=== PATIENT | female | born 1980 | race Caucasian/White ===

== ENCOUNTER → 2023-01-06 | Outpatient (CLI) | payer OTHER ==
[~2023-01-06] VITALS: Ht 172.7 cm; Wt 76.4 kg
[~2023-01-06] MED LIST: LIDOCAINE 1% INJ 10 ML VIAL INJ ONE; LIDOCAINE 1% INJ 10 ML VIAL ONE
--- NOTE | 2023-01-06 14:23 | Diagnostic Imaging Report ---
INDICATION: Left breast mass. Patient presents for ultrasound-guided core biopsy. Patient was brought to the sonographic suite and placed on the table in the supine position. Ultrasound imaging of the left breast was performed to evaluate appropriate entry site. Left breast was then prepped and draped in usual sterile fashion. Small amount of 1% lidocaine was utilized for local anesthesia. A total of 4 core biopsies were made of the solid mass at 3 o'clock location left breast utilizing a 14-gauge Achieve needle. A marker clip was applied. Hemostasis was obtained using manual compression. Patient tolerated the procedure well and was sent for postprocedure mammogram in satisfactory condition. IMPRESSION: Successful ultrasound-guided core biopsy of the solid mass 3 o'clock location left breast. Pathology results are currently pending. Dictated by: Dictated on workstation # [id number]
--- NOTE | 2023-01-06 15:36 | Diagnostic Imaging Report ---
INDICATION: Left breast mass, status post ultrasound-guided biopsy. Unilateral left 2-D CC and ML mammography was performed after patient underwent ultrasound-guided biopsy. There is a marker clip along the edge of the mass in the outer aspect of the left breast mid depth. IMPRESSION: Marker clip placement, status post ultrasound-guided core biopsy. Dictated by: Dictated on workstation # [id number]
== END ==
LOC: RAD 12:41
PROVIDERS: ATTEND Nurse Practitioner
DX: N63.25 Unspecified lump in the left breast, overlapping quadrants (principal)
CPT/HCPCS: 19083; 77065; A4648; G0279

== ENCOUNTER → 2023-02-05 | Outpatient (CLI) | payer SELFPAY | LOC: CARD 12:57 | PROVIDERS: ATTEND Internal Medicine Hematology & Oncology | DX: C50.912 Malignant neoplasm of unspecified site of left female breast (principal); Z15.01 Genetic susceptibility to malignant neoplasm of breast | CPT/HCPCS: 93306 ==

== ENCOUNTER 2023-03-24 13:26 | Emergency (ER) | payer MEDICAID ==
[~2023-03-24] VITALS: Ht 170.2 cm; Wt 66.0 kg
--- NOTE | 2023-03-24 13:52 | ED Cough/URI ---
General Chief Complaint: Cough/Cold/Flu Symptoms Stated Complaint: CHILLS/FEVER/SORE THROAT/CHEST CONGESTION/COUGH Nursing Triage Note: PT AMBULATE TO ROOM FSOF WITHOUT DIFFCULTY WITH C/O COUGH, CONGESTION, FEVER, SORE THROAT STARTING FRIDAY. PT REPORTS CURRENTLY BEING TREATED FOR BREAST CANCER. Source: patient Exam Limitations: no limitations History of Present Illness Date Seen by Provider: Mar 24, 2023 Time Seen by Provider: 13:39 Initial Comments 42-year-old female presents to the emergency department today for cough, fever congestion and body aches. Symptoms started on Friday. She took a COVID test at that time which was negative. Notably she does have breast cancer and is undergoing chemotherapy with her last treatment on Friday of last week. She does not have a history of low blood counts with this. No sick contacts. All other systems reviewed and negative except documented per HPI. Voice recognition software was used to help create this chart Allergies and Home Medications Allergies Coded Allergies: doxycycline (Verified Allergy, Severe, Vomiting, 01/06/23) Sulfa (Sulfonamide Antibiotics) (Verified Allergy, Mild, 01/06/23) Patient Home Medication List Home Medication List Reviewed: Yes Levofloxacin (Levofloxacin) 500 Mg Tablet, 500 MG PO DAILY Prescribed by: SRINIVAS QUINN MD on 03/24/23 [id number] Review of Systems Review of Systems Constitutional: see HPI Past Itplnma-Lvbgfd-Ldxxmv Hx Patient Social History Tobacco Use?: No Smoking Status: Never a Smoker Smokeless Tobacco Frequency: Never a User Use of E-Cig and/or Vaping dev: Yes Use of E-Cig and/or Vaping Loco: Current Everyday User Substance use?: No Alcohol Use?: No Pt feels they are or have been: No Physical Exam Vital Signs - First Documented 03/24/23 13:35 Temp 38.8 Pulse 114 Resp 19 B/P (MAP) 128/51 (76) O2 Delivery Room Air Capillary Refill : Less Than 3 Seconds Height: '" Weight: lbs. oz. kg; 22.00 BMI Method: General Appearance: WD/WN, no apparent distress Eyes: Bilateral Eye Normal Inspection, Bilateral Eye PERRL, Bilateral Eye EOMI HEENT: normal ENT inspection, TMs normal, pharynx normal Neck: non-tender, full range of motion, supple, normal inspection Respiratory: chest non-tender, lungs clear, normal breath sounds, no respiratory distress, no accessory muscle use Cardiovascular: regular rate, rhythm, no murmur Gastrointestinal: normal bowel sounds, non tender, soft Extremities: normal range of motion, non-tender, normal inspection Neurologic/Psychiatric: alert, oriented x 3 Skin: normal color, warm/dry Lymphatic: no adenopathy Focused Exam Lactate Level 03/24/23 13:50: Lactic Acid Level 2.89*H Lactic Acid Level Laboratory Tests Test 03/24/23 13:50 Lactic Acid Level 2.89 MMOL/L (0.50-2.00) *H Progress/Results/Core Measures Suspected Sepsis SIRS Temperature: Pulse: 114 Respiratory Rate: 19 Laboratory Tests 03/24/23 13:50: White Blood Count 8.1 Blood Pressure 128 /51 Mean: 76 03/24/23 13:50: Lactic Acid Level 2.89*H Laboratory Tests 03/24/23 13:50: Creatinine 0.56L, Platelet Count 381, Total Bilirubin 0.5 Results/Orders Lab Results Laboratory Tests Test 03/24/23 13:50 03/24/23 14:07 Range/Units White Blood Count 8.1 4.3-11.0 10^3/uL Red Blood Count 3.27 L 3.80-5.11 10^6/uL Hemoglobin 10.4 L 11.5-16.0 g/dL Hematocrit 31 L 35-52 % Mean Corpuscular Volume 95 80-99 fL Mean Corpuscular Hemoglobin 32 25-34 pg Mean Corpuscular Hemoglobin Concent 33 32-36 g/dL Red Cell Distribution Width 14.8 H 10.0-14.5 % Platelet Count 381 130-400 10^3/uL Mean Platelet Volume 9.1 9.0-12.2 fL Immature Granulocyte % (Auto) 0 % Neutrophils (%) (Auto) 71 42-75 % Lymphocytes (%) (Auto) 18 12-44 % Monocytes (%) (Auto) 9 0-12 % Eosinophils (%) (Auto) 1 0-10 % Basophils (%) (Auto) 1 0-10 % Neutrophils # (Auto) 5.7 1.8-7.8 10^3/uL Lymphocytes # (Auto) 1.5 1.0-4.0 10^3/uL Monocytes # (Auto) 0.8 0.0-1.0 10^3/uL Eosinophils # (Auto) 0.1 0.0-0.3 10^3/uL Basophils # (Auto) 0.1 0.0-0.1 10^3/uL Immature Granulocyte # (Auto) 0.0 0.0-0.1 10^3/uL Percent Immature Platelet Fraction 2.2 0.0-7.6 % Urine Color YELLOW Urine Clarity CLEAR Urine pH 6.0 5-9 Urine Specific Brooks <=1.005 1.016-1.022 Urine Protein NEGATIVE NEGATIVE Urine Glucose (UA) NEGATIVE NEGATIVE Urine Ketones NEGATIVE NEGATIVE Urine Nitrite NEGATIVE NEGATIVE Urine Bilirubin NEGATIVE NEGATIVE Urine Urobilinogen 0.2 < = 1.0 MG/DL Urine Leukocyte Esterase NEGATIVE NEGATIVE Urine RBC (Auto) 1+ H NEGATIVE Urine RBC 10-25 H /HPF Urine WBC 0-2 /HPF Urine Squamous Epithelial Cells 5-10 /HPF Urine Crystals NONE /LPF Urine Bacteria FEW H /HPF Urine Casts NONE /LPF Urine Mucus NEGATIVE /LPF Urine Culture Indicated NO Sodium Level 135 135-145 MMOL/L Potassium Level 3.8 3.6-5.0 MMOL/L Chloride Level 100 98-107 MMOL/L Carbon Dioxide Level 21 21-32 MMOL/L Anion Gap 14 5-14 MMOL/L Blood Urea Nitrogen 3 L 7-18 MG/DL Creatinine 0.56 L 0.60-1.30 MG/DL Estimat Glomerular Filtration Rate 118 BUN/Creatinine Ratio 5 Glucose Level 145 H 70-105 MG/DL Lactic Acid Level 2.89 *H 0.50-2.00 MMOL/L Calcium Level 9.6 8.5-10.1 MG/DL Corrected Calcium 9.2 8.5-10.1 MG/DL Total Bilirubin 0.5 0.1-1.0 MG/DL Aspartate Amino Transf (AST/SGOT) 42 H 5-34 U/L Alanine Aminotransferase (ALT/SGPT) 60 H 0-55 U/L Alkaline Phosphatase 103 40-136 U/L Total Protein 7.6 6.4-8.2 GM/DL Albumin 4.5 3.2-4.5 GM/DL Influenza Type A (RT-PCR) Not Detected Not Detecte Influenza Type B (RT-PCR) Not Detected Not Detecte SARS-CoV-2 RNA (RT-PCR) Not Detected Not Detecte My Orders Orders - SRINIVAS QUINN DO Cbc And Automated Diff (03/24/23 13:48) Comprehensive Metabolic Panel (03/24/23 13:48) Ua Culture If Indicated (03/24/23 13:48) Chest 1 View Ap/Pa Only (03/24/23 13:48) Lactic Acid Analyzer (03/24/23 13:48) Covid 19 Inhouse Test (03/24/23 13:48) Influenza A And B By Pcr (03/24/23 13:48) Blood Culture (03/24/23 13:48) Ed Iv/Invasive Line Start (03/24/23 13:48) Ns Iv 1000 Ml (Ns Iv 1000 Ml) (03/24/23 14:00) Vital Signs/I&O 03/24/23 03/24/23 13:35 13:35 Temp 38.8 Pulse 114 Resp 19 B/P (MAP) 128/51 (76) O2 Delivery Room Air Room Air Capillary Refill : Less Than 3 Seconds Blood Pressure Mean: 76 Departure Communication (Admissions) Patient is hemodynamically stable, mildly tachycardic in accordance with her fever. Blood pressures are normal. She does have slightly elevated lactic acid she was given IV fluids here. Electrolytes, creatinine are all normal. White blood cell count is normal, no evidence for neutropenia given her recent chemotherapy. Chest x-ray does show some mild atelectasis versus infiltrate so given her immunocompromise state we will go ahead and start her on some antibiotics. We will go ahead and give her Levaquin to start today. COVID and flu testing are negative. She be discharged home in stable condition with strict return precautions. Impression Primary Impression: Fever Qualified Codes: R50.9 - Fever, unspecified Additional Impression: Pneumonia Qualified Codes: J18.9 - Pneumonia, unspecified organism Disposition: HOME, SELF-CARE Condition: Stable Departure-Patient Inst. Referrals: NO,LOCAL PHYSICIAN (PCP/Family) Primary Care Physician Patient Instructions: Bacterial Upper Respiratory Infection, Adult (DC) Add. Discharge Instructions: Take the antibiotics as prescribed until they are gone. Alternate ibuprofen and Tylenol as needed for fevers, body aches. Increase your fluids at home. Follow-up with your primary doctor should your symptoms change in any way concerning to you. Return to the emergency department for any severe concerns. All discharge instructions reviewed with patient and/or family. Voiced understanding. Scripts Levofloxacin (Levofloxacin) 500 Mg Tablet 500 MG PO DAILY for 5 Days, #5 TAB Prov: SRINIVAS QUINN DO 03/24/23 Work/School Note: Work Release Form Date Seen in the Emergency Department: Mar 24, 2023 Return to Work: Mar 26, 2023 Restrictions: No Restrictions Copy Copies To 1: KENYA BARDALES KENNETH L DO Mar 24, 2023 13:52
[2023-03-24] MEDS ORDERED: NS IV 1000 ML 1,000 ML IV SCH (14:00)
[2023-03-24 14:19] LABS: BASOPHILS # (AUTO) 0.1 10^3/uL (0.0-0.1); BASOPHILS % (AUTO) 1 % (0-10); BILIRUBIN,URINE NEGATIVE (NEGATIVE); CLARITY,URINE CLEAR; COLOR,URINE YELLOW; EOSINOPHILS # (AUTO) 0.1 10^3/uL (0.0-0.3); EOSINOPHILS % (AUTO) 1 % (0-10); GLUCOSE, URINE (UA) NEGATIVE (NEGATIVE); HEMATOCRIT 31 % (35-52); HEMOGLOBIN 10.4 g/dL (11.5-16.0); KETONES,URINE NEGATIVE (NEGATIVE); LEUKOCYTE ESTERASE ,URINE NEGATIVE (NEGATIVE); LYMPHOCYTES # (AUTO) 1.5 10^3/uL (1.0-4.0); LYMPHOCYTES % (AUTO) 18 % (12-44); MEAN CORPUSCULAR HEMOGLOBIN 32 pg (25-34); MEAN CORPUSCULAR HGB CONC 33 g/dL (32-36); MEAN CORPUSCULAR VOLUME 95 fL (80-99); MEAN PLATELET VOLUME 9.1 fL (9.0-12.2); MONOCYTES # (AUTO) 0.8 10^3/uL (0.0-1.0); MONOCYTES % (AUTO) 9 % (0-12); NEUTROPHILS # (AUTO) 5.7 10^3/uL (1.8-7.8); NEUTROPHILS % (AUTO) 71 % (42-75); NITRITE,URINE NEGATIVE (NEGATIVE); PLATELET COUNT 381 10^3/uL (130-400); PROTEIN,URINE NEGATIVE (NEGATIVE); WHITE BLOOD COUNT 8.1 10^3/uL (4.3-11.0)
[2023-03-24 14:27] LABS: BACTERIA,URINE FEW /HPF; WBC,URINE 0-2 /HPF
--- NOTE | 2023-03-24 14:33 | Diagnostic Imaging Report ---
EXAMINATION: Chest, 1 view. HISTORY: Cough, fever, on chemotherapy. COMPARISON: None available. FINDINGS: Heart size and pulmonary vasculature are normal. There are mild interstitial opacities within the lung bases. No pleural effusion or pneumothorax. The osseous structures are intact. A right-sided port catheter is present. IMPRESSION: Mild interstitial opacities in the lung bases which could be seen with atelectasis, edema, or pneumonia. Dictated by: Dictated on workstation # [id number]
[2023-03-24 14:37] LABS: BILIRUBIN,TOTAL 0.5 MG/DL (0.1-1.0); CALCIUM 9.6 MG/DL (8.5-10.1); CREATININE SERUM 0.56 MG/DL (0.60-1.30); POTASSIUM 3.8 MMOL/L (3.6-5.0)
[2023-03-24 14:38] LABS: ALBUMIN 4.5 GM/DL (3.2-4.5); TOTAL PROTEIN 7.6 GM/DL (6.4-8.2)
[2023-03-24] MEDS ORDERED: LEVO-55 PO (14:47)
[2023-03-24] MEDS ORDERED: FLUC200T PO (14:57)
[2023-03-24 14:58] VITALS: BP 128/62
== END 2023-03-24 14:58 | disposition home or self-care (01) ==
LOC: EDUNIT# 13:26 → ER FS 13:28
DX: J18.9 Pneumonia, unspecified organism (principal); F17.290 Nicotine dependence, other tobacco product, uncomplicated; Z88.1 Allergy status to other antibiotic agents; Z88.2 Allergy status to sulfonamides
CPT/HCPCS: 36415; 71045; 80053; 81000; 83605; 85025; 87040; 87636

== ENCOUNTER 2023-04-04 12:22 | Emergency (ER) | payer MEDICAID ==
[~2023-04-04] VITALS: Ht 170.2 cm; Wt 64.4 kg
[~2023-04-04 12:22] MED LIST changes: +FLUC200T PO; +LEVO-55 PO; -LIDOCAINE 1% INJ 10 ML VIAL INJ ONE; -LIDOCAINE 1% INJ 10 ML VIAL ONE
[2023-04-04] MEDS ORDERED: LACTATED RINGERS 1,000 ML 1,000 ML IV ONE ×3 (13:30→18:45)
[2023-04-04] MEDS ORDERED: fentaNYL INJECTION 100 MCG/2 ML VIAL IVP ONE ×2 (13:30→19:00)
--- NOTE | 2023-04-04 13:39 | ED General ---
General Chief Complaint: General Problems/Pain Stated Complaint: GENERAL PAIN Nursing Triage Note: PT AMBULATE TO ROOM 10 WITHOUT DIFFICULTY WITH C/O GENERALIZED BODY PAIN. PT REPORTS HX OF CANCER AND HAS NOT BEEN ABLE TO MAKE IT TO HER LAST X2 TREATMENTS. PT REPORTS NEW ABD PAIN. Source of Information: Patient Exam Limitations: No Limitations (BARB VELEZ MD) History of Present Illness Date Seen by Provider: Apr 04, 2023 Time Seen by Provider: 13:15 Initial Comments This 42 year old young lady presents to the ER via private vehicle with ab dominal discomfort, cough, diarrhea, nausea, fatigue, headache and fevers up to 101 over the past few days. She is presently receiving chemotherapy treatment for breast cancer. Her last round of chemotherapy was [address] Reddy is her oncologist. She does not have a primary care provider. She is tachycardic at this time but afebrile. She reports recently being treated for suspected pneumonia with a Z-Linus that was started 3 days ago. She was directed to the ER by Dr. Reddy's clinic. She was also seen in the [place] emergency room on March 24. She was diagnosed with bacterial upper respiratory infection and was prescribed Levaquin at that time. She notes her urine has been dark and she feels dry. (BARB VELEZ MD) Allergies and Home Medications Allergies Coded Allergies: doxycycline (Verified Allergy, Severe, Vomiting, 01/06/23) Sulfa (Sulfonamide Antibiotics) (Verified Allergy, Mild, 01/06/23) Patient Home Medication List Home Medication List Reviewed: Yes (BARB VELEZ MD) Fluconazole (Diflucan) 200 Mg Tablet, 200 MG PO ONCE Prescribed by: SRINIVAS QUINN MD on 03/24/23 1457 Hyoscyamine Sulfate (Levsin-Sl) 0.125 Mg Tab.subl, 0.125 MG SL Q4H PRN for CRAMPS Prescribed by: BARB PHELAN on 04/04/23 1609 L. Acidophilus/Pectin, Grundy (Acidophilus Capsule) 7.5 Mg (30 Million Cell)-100 Mg Capsule, 2 EACH PO QID Prescribed by: LLOYD JARVIS on 04/04/23 1950 Levofloxacin (Levofloxacin) 500 Mg Tablet, 500 MG PO DAILY Prescribed by: SRINIVAS QUINN MD on 03/24/23 1447 Ondansetron (Ondansetron Odt) 4 Mg Tab.rapdis, 4 MG SL Q4H PRN for NAUSEA/VOMITING Prescribed by: BARB PHELAN on 04/04/23 1609 Pantoprazole Sodium (Protonix) 40 Mg Tablet.dr, 40 MG PO DAILY Prescribed by: LLOYD JARVIS on 04/04/231915 Sucralfate (Carafate) 1 Gram Tablet, 1 GM PO QID Prescribed by: LLOYD JARVIS on 04/04/231915 Review of Systems Review of Systems Constitutional: see HPI EENTM: no symptoms reported Respiratory: see HPI Cardiovascular: see HPI Gastrointestinal: see HPI Genitourinary: no symptoms reported : No Musculoskeletal: no symptoms reported Skin: no symptoms reported Psychiatric/Neurological: See HPI Hematologic/Lymphatic: See HPI Immunological/Allergic: see HPI (BARB VELEZ MD) Past Duemyap-Unukaf-Rtpbdl Hx Patient Social History Tobacco Use?: No Smoking Status: Never a Smoker Smokeless Tobacco Frequency: Never a User Use of E-Cig and/or Vaping dev: Yes E-Cig or Vaping type used: Nicotine Use of E-Cig and/or Vaping Loco: Current Everyday User Substance use?: No Alcohol Use?: No Pt feels they are or have been: No (BARB VELEZ MD) Past Medical History Surgeries: Yes (Port) Section Respiratory: No Cardiac: No Neurological: No : No Reproductive Disorders: No Genitourinary: No Gastrointestinal: No Musculoskeletal: No Endocrine: No Cancer: Yes Breast Did You Recieve Any Treatments: Yes What Type of Treatment Did You: Chemotherapy (BARB VELEZ MD) Physical Exam Vital Signs Vital Signs - First Documented 04/04/23 12:42 Temp 36.5 Pulse 127 Resp 16 B/P (MAP) 126/83 (97) O2 Delivery Room Air (LLOYD JARVIS DO) Vital Signs Capillary Refill : (BARB VELEZ MD) Height, Weight, BMI Height: '" Weight: lbs. oz. kg; 22.00 BMI Method: General Appearance: No Apparent Distress, WD/WN HEENT: PERRL/EOMI, Normal ENT Inspection, Other (Oropharynx somewhat dry) Neck: Normal Inspection; No JVD Respiratory: Lungs Clear, Normal Breath Sounds, No Accessory Muscle Use Cardiovascular: No Edema, No Murmur, Tachycardia (Regular) Gastrointestinal: Normal Bowel Sounds, Soft; No Distended; Tenderness (Mild, generalized) Extremity: Normal Inspection, No Pedal Edema Neurologic/Psychiatric: Alert, Oriented x3, No Motor/Sensory Deficits, Normal Mood/Affect Skin: Normal Color, Warm/Dry (BARB VELEZ MD) Focused Exam Lactate Level 04/04/23 18:56: Lactic Acid Level 0.95 (LLOYD JARVIS DO) Lactic Acid Level Laboratory Tests Test 04/04/23 18:56 Lactic Acid Level 0.95 MMOL/L (0.50-2.00) (LLOYD JARVIS DO) Progress/Results/Core Measures Suspected Sepsis SIRS Temperature: Pulse: 127 Respiratory Rate: 16 Laboratory Tests 04/04/23 13:43: White Blood Count 6.3 Blood Pressure 126 /83 Mean: 97 04/04/23 18:56: Lactic Acid Level 0.95 Laboratory Tests 04/04/23 13:43: Creatinine 0.58L, Platelet Count 328, Total Bilirubin 0.9 04/04/23 13:48: INR Comment 1.1 (BARB VELEZ MD) Results/Orders Lab Results Laboratory Tests Test 04/04/23 13:19 04/04/23 13:43 04/04/23 13:48 04/04/23 18:56 Range/Units Urine Color YELLOW Urine Clarity CLEAR Urine pH 5.5 5-9 Urine Specific [place] >=1.030 1.016-1.022 Urine Protein TRACE H NEGATIVE Urine Glucose (UA) NEGATIVE NEGATIVE Urine Ketones 4+ H NEGATIVE Urine Nitrite NEGATIVE NEGATIVE Urine Bilirubin 1+ H NEGATIVE Urine Urobilinogen 0.2 < = 1.0 MG/DL Urine Leukocyte Esterase NEGATIVE NEGATIVE Urine RBC (Auto) 1+ H NEGATIVE Urine RBC RARE /HPF Urine WBC RARE /HPF Urine Squamous Epithelial Cells 5-10 /HPF Urine Crystals PRESENT H /LPF Urine Amorphous Sediment RARE GIULIA URATES H /LPF Urine Bacteria NEGATIVE /HPF Urine Casts NONE /LPF Urine Mucus NEGATIVE /LPF Urine Culture Indicated NO White Blood Count 6.3 4.3-11.0 10^3/uL Red Blood Count 3.19 L 3.80-5.11 10^6/uL Hemoglobin 9.9 L 11.5-16.0 g/dL Hematocrit 30 L 35-52 % Mean Corpuscular Volume 95 80-99 fL Mean Corpuscular Hemoglobin 31 25-34 pg Mean Corpuscular Hemoglobin Concent 33 32-36 g/dL Red Cell Distribution Width 13.7 10.0-14.5 % Platelet Count 328 130-400 10^3/uL Mean Platelet Volume 9.1 9.0-12.2 fL Immature Granulocyte % (Auto) 1 % Neutrophils (%) (Auto) 65 42-75 % Lymphocytes (%) (Auto) 20 12-44 % Monocytes (%) (Auto) 14 H 0-12 % Eosinophils (%) (Auto) 1 0-10 % Basophils (%) (Auto) 1 0-10 % Neutrophils # (Auto) 4.1 1.8-7.8 10^3/uL Lymphocytes # (Auto) 1.2 1.0-4.0 10^3/uL Monocytes # (Auto) 0.9 0.0-1.0 10^3/uL Eosinophils # (Auto) 0.0 0.0-0.3 10^3/uL Basophils # (Auto) 0.0 0.0-0.1 10^3/uL Immature Granulocyte # (Auto) 0.0 0.0-0.1 10^3/uL Sodium Level 138 135-145 MMOL/L Potassium Level 3.5 L 3.6-5.0 MMOL/L Chloride Level 106 98-107 MMOL/L Carbon Dioxide Level 23 21-32 MMOL/L Anion Gap 9 5-14 MMOL/L Blood Urea Nitrogen 10 7-18 MG/DL Creatinine 0.58 L 0.60-1.30 MG/DL Estimat Glomerular Filtration Rate 117 BUN/Creatinine Ratio 17 Glucose Level 85 70-105 MG/DL Calcium Level 9.8 8.5-10.1 MG/DL Corrected Calcium 10.0 8.5-10.1 MG/DL Magnesium Level 1.8 1.6-2.4 MG/DL Total Bilirubin 0.9 0.1-1.0 MG/DL Aspartate Amino Transf (AST/SGOT) 50 H 5-34 U/L Alanine Aminotransferase (ALT/SGPT) 70 H 0-55 U/L Alkaline Phosphatase 96 40-136 U/L C-Reactive Protein High Sensitivity 0.24 0.00-0.50 MG/DL B-Type Natriuretic Peptide 47.6 <100.0 PG/ML Total Protein 6.7 6.4-8.2 GM/DL Albumin 3.8 3.2-4.5 GM/DL Lipase 23 8-78 U/L Serum Test, Qualitative NEGATIVE NEGATIVE Influenza Type A (RT-PCR) Not Detected Not Detecte Influenza Type B (RT-PCR) Not Detected Not Detecte SARS-CoV-2 RNA (RT-PCR) Not Detected Not Detecte Prothrombin Time 14.9 H 12.2-14.7 SEC INR Comment 1.1 0.8-1.4 Activated Partial Thromboplast Time 33 24-35 SEC D-Dimer 1.16 H 0.00-0.49 UG/ML Troponin I < 0.028 <0.028 NG/ML TSH Agency Testing 0.00 L 0.35-4.94 UIU/ML Lactic Acid Level 0.95 0.50-2.00 MMOL/L (LLOYD JARVIS DO) My Orders Orders - LLOYD JARVIS DO Ct Angio Chest W (R/O Pe) (04/04/23 18:28) Iohexol Injection (Omnipaque 350 Mg/Ml 1 (04/04/23 18:30) Ns (Ivpb) 100 Ml (Sodium Chloride 0.9% 1 (04/04/23 18:30) Ed Iv/Invasive Line Start (04/04/23 18:33) Lactated Ringers 1,000 Ml (Lactated Ring (04/04/23 18:45) Fentanyl Injection (Fentanyl Injection (04/04/23 19:00) Thyroid Analyzer (04/04/23 18:59) Bnp Suzanne (04/04/23 19:20) Free T4 (Free Thyroxine) (04/04/23 13:48) Rx-Hyoscyamine Tab (Rx-Levsin Sl) (04/04/23 19:59) Rx-Ondansetron Po (Rx-Zofran Po) (04/04/23 19:59) (LLOYD JARVIS DO) Medications Given in ED Current Medications Medications Dose Ordered Sig/Annie Route Start Time Stop Time Status Last Admin Dose Admin Fentanyl Citrate 50 mcg ONCE ONCE IVP 04/04/23 13:30 04/04/23 13:31 DC 04/04/23 13:35 50 MCG Fentanyl Citrate 50 mcg ONCE ONCE IVP 04/04/23 19:00 04/04/23 19:01 DC 04/04/23 19:19 50 MCG Iohexol 100 ml ONCE ONCE IV 04/04/23 17:15 04/04/23 17:16 DC 04/04/23 17:26 80 ML Iohexol 100 ml ONCE ONCE IV 04/04/23 18:30 04/04/23 18:31 DC 04/04/23 18:52 70 ML Lactated Ringer's 1,000 ml @ 0 mls/hr Q0M ONCE IV 04/04/23 13:30 04/04/23 13:31 DC 04/04/23 13:35 999 MLS/HR Lactated Ringer's 1,000 ml @ 0 mls/hr Q0M ONCE IV 04/04/23 14:30 04/04/23 14:31 DC 04/04/23 14:35 999 MLS/HR Lactated Ringer's 1,000 ml @ 0 mls/hr Q0M ONCE IV 04/04/23 18:45 04/04/23 18:46 DC 04/04/23 18:50 999 MLS/HR Sodium Chloride 100 ml ONCE ONCE IV 04/04/23 17:15 04/04/23 17:16 DC 04/04/23 17:27 80 ML Sodium Chloride 100 ml ONCE ONCE IV 04/04/23 18:30 04/04/23 18:31 DC 04/04/23 18:52 70 ML (LLOYD JARVIS DO) Vital Signs/I&O 04/04/23 12:42 Temp 36.5 Pulse 127 Resp 16 B/P (MAP) 126/83 (97) O2 Delivery Room Air (SIMONAGONZALESA K DO) Vital Signs/I&O Capillary Refill : (BARB VELEZ MD) Blood Pressure Mean: 97 Progress Note #1: Time: 17:00 Progress Note Lakia was interviewed and examined. She had generalized abdominal pain which is new for her. She was treated with fentanyl for pain control. She did not require any antiemetics. She was hydrated with a liter of LR which was repeated after review of her urinalysis which revealed 4+ ketones and high specific gravity suggesting hypovolemia. Labs were obtained and interpreted by me. Hemoglobin did was 10.4 on March 24 and is 9.9 today. CBC is otherwise unremarkable. CMP demonstrated no clinically significant abnormalities. Urinalysis was notable for high specific gravity and 4+ ketones. 2 view chest x-ray was reviewed by me and interpreted as unremarkable. Report was also reviewed as noted below. There is no evidence of active pneumonia. Patient was reexamined and found to have tenderness primarily on the right side of the abdomen, right upper quadrant greater than right lower quadrant. She was further evaluated with a gallbladder ultrasound which was unremarkable. We discussed risks and benefits of a CT scan to further evaluate her pain, fevers, and tachycardia. She declined CT scan. She also declined further pain management with Toradol. Patient was actually prepared for discharge but nursing staff noted that her heart rate was still in the 120-130 range and her blood pressure was 104/42 with a MAP of 67. Temperature was checked again and she is not febrile. She denies consuming any substances that would have accelerated her blood pressure such as decongestant medications or other stimulants. She denies withdrawing from any substances such as benzodiazepines or opioid pain medications. She appears to be adequately hydrated based on her labs. She is also urinated multiple times since initiating IV fluids. Since there is no explanation for this tachycardia, I have recommended that she proceed with the CT of the abdomen for further evaluation. She is agreeable. This will help ensure that there is no occult infection in the abdomen or hemorrhage. Patient asserts that she has had fever for the past 2 days even though she is afebrile here and that she just simply does not feel well in general. Progress Note #2: Time: 18:17 Progress Note Lakia has remained tachycardic with heart rate in the 120-[address] of the abdomen and pelvis was viewed by me. No acute abnormalities were appreciated by my interpretation. Radiologist's report was also reviewed as below. There was fluid in the bowel consistent with diarrheal disease which also matches with her clinical presentation. No explanation has yet surfaced for her symptoms and tachycardia. Viral illness is still within the differential. I have interviewed her again regarding her symptoms. She denies any chest pain, shortness of breath, or pleuritic pain. Her oxygen saturations have been in the mid 90s to 100 on room air. She has demonstrated no dyspnea. However, in the context of no other explanation, I am compelled to include pulmonary embolus in the differential. I have discussed options for further evaluation with the patient. In regard to additional studies, she states "I want to do what ever it takes to feel better." Additional studies including D-dimer, EKG, and troponin have been ordered. Care is being transitioned to Dr. JARVIS at this time. Although no source of infection has been identified, blood culture will also be obtained due to the fever she has had in recent days. (BARB VELEZ MD) Progress Note : Progress Note 1800--ASSUMED CARE OF PT AT SHIFT CHANGE, ADDITIONAL TESTS HAVE JUST BEEN ORDERED BY DR. VELEZ AT END OF SHIFT ( PT HAS ALREADY BEEN HERE > 6 HOURS) , WILL ALSO ADD CT CHEST ANGIOGRAM 1854--PT C/O HEADACHE--FENTANYL ORDERED. ADDITIONAL FLUIDS ORDERED CT SCANS OF CHEST, ABDOMEN, PELVIS UNREMARKABLE EXCEPT FOR LIQUID STOOL NOTED ON CT SCAN. ULTRASOUND OF ABDOMEN NORMAL CXR DOES NOT SHOW ANY ACUTE PROCESS LABS UNREMARKABLE, HGB 9.9, CMP UNREMARKABLE, AMYLASE / LIPASE NORMAL, LFT'S UPPER LIMITS OF NORMAL. LACTIC ACID IS NORMAL TROPONIN IS NEGATIVE BNP NORMAL TSH 0.0 CRP NORMAL EKG SHOWS SINUS TACH, NO ST SEGMENT ABNORMALITIES UA DOES NOT SHOW INFECTION COVID / FLU TESTS NEGATIVE UA WITH 4+ KETONES NO STOOLS DURING MY CARE OF PT, PT STATES SHE HAS BEEN HAVING DIARRHEA. DISCUSSED POSSIBILITY OF C. DIFF. SHE HAS BEEN ON ANTIBIOTICS RECENTLY, AND NEED FOR STOOL SPECIMEN TO DETERMINE THAT. HEADACHE GONE, ABDOMINAL PAIN IMPROVED. NO NAUSEA, NO VOMITING, NO BM DURING ER STAY PT HAS VOIDED MULTIPLE TIMES DURING ER STAY NO COUGH, NO DYSPNEA, NO HYPOXIA, NO CHEST PAIN VITALS STABLE, HR DOWN, BP > 100 SYSTOLIC, NO FEVER AT DISMISSAL DISCUSSED ALL TEST RESULTS, ANTICIPATED COURSE, SYMPTOMATIC TREATMENT, DIET, ME DICATIONS, NEED FOR FOLLOW UP WITH DR. REDDY, NEED TO ESTABLISH WITH PCP ( PT IS CONSIDERING [facility] [place] ) AND RETURN PRECAUTIONS. DISCUSSED ABNORMAL THYROID FUNCTION AND STRESSED IMPORTANCE OF FOLLOW UP FOR FURTHER EVALUATION AND TREATMENT OF THAT PROBLEM WELL COMPLICATIONS, INCLUDING CARDIAC ARRHYTHMIAS. PT STATES AT DISMISSAL, HER MOTHER HAD BREAST CANCER, HYPERTHYROIDISM AND ATRIAL FIBRILLATION PT STATES SHE WAS FAIRLY RECENTLY DX WITH BREAST CANCER, AND IS ONLY ON CHEMOTHERAPY, HAS NOT HAD SURGERY OR RADIATION YET. HER ONLY PRIOR VISIT WAS AT [facility] 03/24/23. (LLOYD JARVIS DO) ECG Initial ECG Impression Date: Apr 04, 2023 Initial ECG Impression Time: 18:31 Initial ECG Rate: 123 Initial ECG Rhythm: S.Tach Initial ECG Intervals: Normal Initial ECG Comparisson: No Previous ECG Available Comment INTERPRETED BY ME (LLOYD JARVIS DO) Diagnostic Imaging Diagonstic Imaging: Xray Plain Films/CT/US/NM/MRI: chest Comments NAME: LAKIA LERNER [facility] REC#: [id number] PT STATUS: REG ER : 1980 PHYSICIAN: BARB VELEZ MD ADMIT DATE: 04/04/23/ER Draft Date of Exam:04/04/23 CHEST PA/LAT (2 VIEW) INDICATION: Pain, respiratory distress COMPARISON: 03/24/2023 FINDINGS: The lungs are clear. No failure, effusion or pneumothorax. Central line at the SVC. IMPRESSION: Unremarkable 2 view chest. Dictated on workstation # [id number] Dict: 04/04/23 1448 Trans: 04/04/23 1454 [facility] [id number] Interpreted by: ELLIE ARREOLA Diagonstic Imaging: Ultrasound Plain Films/CT/US/NM/MRI: abdomen Comments NAME: LAKIA LERNER [facility] REC#: [id number] PT STATUS: REG ER : 1980 PHYSICIAN: BARB VELEZ MD ADMIT DATE: 04/04/23/ER Draft Date of Exam:04/04/23 US GALLBLADDER [id number] PROCEDURE: US Gallbladder. TECHNIQUE: Multiple real-time grayscale images were obtained over the right upper quadrant in various projections. INDICATION: Right upper quadrant pain. FINDINGS: The liver parenchyma appeared normal. The gallbladder is normal. No stone or sludge. Portal vein is patent and normal in directional flow. No intra or extrahepatic bile duct dilatation. The unobstructed right kidney is normal. The aorta, IVC, and pancreas appeared normal. IMPRESSION: Normal right upper quadrant ultrasound. Dictated on workstation # [id number] Dict: 04/04/23 1542 Trans: 04/04/23 1545 [facility] [id number] Interpreted by: ELLIE ARREOLA Diagonstic Imaging: CT Plain Films/CT/US/NM/MRI: abdomen, pelvis Comments NAME: LAKIA LERNER [facility] REC#: [id number] PT STATUS: REG ER : 1980 PHYSICIAN: BARB VELEZ MD ADMIT DATE: 04/04/23/ER Draft Date of Exam:04/04/23 CT ABDOMEN/PELVIS W PROCEDURE: CT abdomen and pelvis with contrast. TECHNIQUE: Multiple contiguous axial images were obtained through the abdomen and pelvis after administration of intravenous contrast. Auto Exposure Controls were utilized during the CT exam to meet ALARA standards for radiation dose reduction. All CT scans use one or more of the following dose optimizing techniques: Automated exposure control, MA and/or KvP adjustment based on patient size and exam type or iterative reconstruction. INDICATION: Right-sided abdominal pain. COMPARISON: None. FINDINGS: There is mild dependent atelectasis in the left lung base. The heart is normal in size. The liver demonstrates no focal lesions. The spleen appears normal. The pancreas is normal. The adrenal glands appear normal. The kidneys demonstrate no enhancing lesions and no hydronephrosis. Mild hyperdensity in the left renal collecting system may represent early contrast excretion. The small bowel loops are nondistended without obstruction. There is fluid in the colon, consistent with diarrheal disease. No significant wall thickening or pericolonic edema is seen. The appendix appears normal. The aorta is normal in caliber. No lymphadenopathy is seen. No free fluid or free air is seen. No acute osseous abnormality is seen. IMPRESSION: 1. Fluid in the colon consistent with diarrheal disease. Dictated on workstation # [id number] Dict: 04/04/23 1732 Trans: 04/04/23 1737 [id number] Interpreted by: ROBERT JACKSON MD (BARB VELEZ MD) Comments CT CHEST ANGIOGRAM--PER RADIOLOGIST REPORT AT 1914 FINDINGS: The pulmonary arteries are diagnostic to the segmental level. No filling defects are seen to indicate a pulmonary embolus. The heart is normal in size. There is no pericardial effusion. There are a few prominent mediastinal lymph nodes. This includes a lymph node in the aortopulmonary window measuring 10 mm in short axis. There is a mildly prominent left hilar lymph node measuring 10 mm in the short axis (image 57 series 2). There is a prominent right hilar lymph node which measures 16 mm in the short axis (image 59 series 2). There is no pleural effusion and no pneumothorax. No consolidation is seen in the lungs. Imaged portions of the upper abdomen demonstrate no acute abnormality. No acute osseous abnormality is seen. There is a 1.3 cm nodule in the right thyroid. IMPRESSION: 1. No pulmonary embolus. No acute pulmonary abnormality is seen. 2. Mildly prominent mediastinal and hilar lymph nodes, particularly at the right hilum. This is nonspecific, could be reactive to an infectious or inflammatory etiology. Malignancy is felt less likely but not excluded. 3. Right thyroid nodule, recommend nonemergent ultrasound to further evaluate. Reviewed: Reviewed by Me (LLOYD JARVIS DO) Departure Impression Primary Impression: Right sided abdominal pain Additional Impressions: Nausea Diarrhea Qualified Codes: R19.7 - Diarrhea, unspecified Tachycardia Gastroenteritis Abnormal TSH BREAST CANCER CURRENTLY RECEIVING CHEMOTHERAPY Disposition: 01 HOME, SELF-CARE Condition: Improved Departure-Patient Inst. Decision time for Depature: 16:05 (BARB VELEZ MD) Referrals: NO,LOCAL PHYSICIAN (PCP/Family) Primary Care Physician Patient Instructions: Abdominal Pain, Adult ED, Dehydration, Adult ED, Diarrhea, Adult ED, [id number], Thyroid Stimulating Hormone Test Add. Discharge Instructions: No source of bacterial infection was identified on your work-up today. Complete the azithromycin antibiotic previously prescribed. Start with a noncarbonated clear liquid diet and gradually advance your diet with small quantities of bland food as tolerated. Avoid dairy, fatty foods, and greasy foods until at least 48 hours after your diarrhea has stopped. CLEAR LIQUIDS--WATER, BROTH, JELLO, GATORADE BRATS DIET--BANANAS, RICE, APPLESAUCE, TOAST, SALTINES Use Zofran (ondansetron) as prescribed for nausea or vomiting. Use Levsin (hyoscyamine) as prescribed for bowel cramping or diarrhea. You may use Tylenol (acetaminophen) up to 1000 mg every 6 hours as needed for pain. You may add ibuprofen sparingly up to 600 mg every 6 hours as needed for additional pain relief. Return to the ER if you have worsening symptoms despite following these instructions Follow-up with the oncology clinic by phone tomorrow for further direction. All discharge instructions reviewed with patient and/or family. Voiced understanding. Scripts L. Acidophilus/Pectin, Grundy (Acidophilus Capsule) 7.5 Mg (30 Million Cell)-100 Mg Capsule 2 EACH PO QID, #40 CAP Prov: LLOYD JARVIS DO 04/04/23 Sucralfate (Carafate) 1 Gram Tablet 1 GM PO QID, #60 TAB Prov: LLOYD JARVIS DO 04/04/23 Pantoprazole Sodium (Protonix) 40 Mg Tablet.dr 40 MG PO DAILY, #15 TAB Prov: LLOYD JARVIS DO 04/04/23 Hyoscyamine Sulfate (Levsin-Sl) 0.125 Mg Tab.subl 0.125 MG SL Q4H PRN for CRAMPS, #10 TAB 0 Refills For diarrhea or bowel cramping Prov: BARB VELEZ MD 04/04/23 Ondansetron (Ondansetron Odt) 4 Mg Tab.rapdis 4 MG SL Q4H PRN for NAUSEA/VOMITING, #10 TAB Prov: BARB VELEZ MD 04/04/23 Copy Copies To 1: KENYA REDDY JOSHUA T MD Apr 04, 2023 13:39 LLOYD JARVIS DO Apr 04, 2023 18:58
[2023-04-04 13:53] LABS: BASOPHILS % (AUTO) 1 % (0-10); EOSINOPHILS % (AUTO) 1 % (0-10); HEMATOCRIT 30 % (35-52); HEMOGLOBIN 9.9 g/dL (11.5-16.0); LYMPHOCYTES # (AUTO) 1.2 10^3/uL (1.0-4.0); LYMPHOCYTES % (AUTO) 20 % (12-44); MEAN CORPUSCULAR HEMOGLOBIN 31 pg (25-34); MEAN CORPUSCULAR HGB CONC 33 g/dL (32-36); MEAN CORPUSCULAR VOLUME 95 fL (80-99); MEAN PLATELET VOLUME 9.1 fL (9.0-12.2); MONOCYTES # (AUTO) 0.9 10^3/uL (0.0-1.0); MONOCYTES % (AUTO) 14 % (0-12); NEUTROPHILS # (AUTO) 4.1 10^3/uL (1.8-7.8); NEUTROPHILS % (AUTO) 65 % (42-75); PLATELET COUNT 328 10^3/uL (130-400); WHITE BLOOD COUNT 6.3 10^3/uL (4.3-11.0)
[2023-04-04 14:01] LABS: CLARITY,URINE CLEAR; COLOR,URINE YELLOW; GLUCOSE, URINE (UA) NEGATIVE (NEGATIVE); KETONES,URINE 4+ (NEGATIVE); NITRITE,URINE NEGATIVE (NEGATIVE); PH,URINE 5.5 (5-9); PROTEIN,URINE TRACE (NEGATIVE)
[2023-04-04 14:02] LABS: AMORPHOUS SEDIMENT,UR RARE AMOR URATES /LPF; BACTERIA,URINE NEGATIVE /HPF; BILIRUBIN,URINE 1+ (NEGATIVE); LEUKOCYTE ESTERASE ,URINE NEGATIVE (NEGATIVE); RBC,URINE RARE /HPF; WBC,URINE RARE /HPF
[2023-04-04 14:17] LABS: ALBUMIN 3.8 GM/DL (3.2-4.5); BILIRUBIN,TOTAL 0.9 MG/DL (0.1-1.0); CALCIUM 9.8 MG/DL (8.5-10.1); CREATININE SERUM 0.58 MG/DL (0.60-1.30); MAGNESIUM 1.8 MG/DL (1.6-2.4); POTASSIUM 3.5 MMOL/L (3.6-5.0); TOTAL PROTEIN 6.7 GM/DL (6.4-8.2)
--- NOTE | 2023-04-04 14:54 | Diagnostic Imaging Report ---
INDICATION: Pain, respiratory distress COMPARISON: 03/24/2023 FINDINGS: The lungs are clear. No failure, effusion or pneumothorax. Central line at the SVC. IMPRESSION: Unremarkable 2 view chest. Dictated by: Dictated on workstation # [id number]
--- NOTE | 2023-04-04 15:45 | Diagnostic Imaging Report ---
PROCEDURE: US Gallbladder. TECHNIQUE: Multiple real-time grayscale images were obtained over the right upper quadrant in various projections. INDICATION: Right upper quadrant pain. FINDINGS: The liver parenchyma appeared normal. The gallbladder is normal. No stone or sludge. Portal vein is patent and normal in directional flow. No intra or extrahepatic bile duct dilatation. The unobstructed right kidney is normal. The aorta, IVC, and pancreas appeared normal. IMPRESSION: Normal right upper quadrant ultrasound. Dictated by: Dictated on workstation # [id number]
[2023-04-04] MEDS ORDERED: HYOS0.1283 SL (16:09)
[2023-04-04] MEDS ORDERED: ONDA4TAB11 SL (16:09)
[2023-04-04] MEDS ORDERED: IOHEXOL 350 MG/ML 100 ML (OMNIPAQUE 350) VIAL IV ONE ×2 (17:15→18:30)
[2023-04-04] MEDS ORDERED: NS 100 ML (IVPB) BAG IV ONE ×2 (17:15→18:30)
--- NOTE | 2023-04-04 17:37 | Diagnostic Imaging Report ---
PROCEDURE: CT abdomen and pelvis with contrast. TECHNIQUE: Multiple contiguous axial images were obtained through the abdomen and pelvis after administration of intravenous contrast. Auto Exposure Controls were utilized during the CT exam to meet ALARA standards for radiation dose reduction. All CT scans use one or more of the following dose optimizing techniques: Automated exposure control, MA and/or KvP adjustment based on patient size and exam type or iterative reconstruction. INDICATION: Right-sided abdominal pain. COMPARISON: None. FINDINGS: There is mild dependent atelectasis in the left lung base. The heart is normal in size. The liver demonstrates no focal lesions. The spleen appears normal. The pancreas is normal. The adrenal glands appear normal. The kidneys demonstrate no enhancing lesions and no hydronephrosis. Mild hyperdensity in the left renal collecting system may represent early contrast excretion. The small bowel loops are nondistended without obstruction. There is fluid in the colon, consistent with diarrheal disease. No significant wall thickening or pericolonic edema is seen. The appendix appears normal. The aorta is normal in caliber. No lymphadenopathy is seen. No free fluid or free air is seen. No acute osseous abnormality is seen. IMPRESSION: 1. Fluid in the colon consistent with diarrheal disease. Dictated by: Dictated on workstation # [id number]
--- NOTE | 2023-04-04 19:10 | Diagnostic Imaging Report ---
HISTORY: Chest pain, tachycardia. COMPARISON: None. TECHNIQUE: Axial CT angiogram of the chest was performed following intravenous administration of contrast timed for pulmonary artery evaluation. Sagittal, coronal and MIP reformats were obtained All CT scans use one or more of the following dose optimizing techniques: automated exposure control, MA and/or KvP adjustment based on patient size and exam type or iterative reconstruction. FINDINGS: The pulmonary arteries are diagnostic to the segmental level. No filling defects are seen to indicate a pulmonary embolus. The heart is normal in size. There is no pericardial effusion. There are a few prominent mediastinal lymph nodes. This includes a lymph node in the aortopulmonary window measuring 10 mm in short axis. There is a mildly prominent left hilar lymph node measuring 10 mm in the short axis (image 57 series 2). There is a prominent right hilar lymph node which measures 16 mm in the short axis (image 59 series 2). There is no pleural effusion and no pneumothorax. No consolidation is seen in the lungs. Imaged portions of the upper abdomen demonstrate no acute abnormality. No acute osseous abnormality is seen. There is a 1.3 cm nodule in the right thyroid. IMPRESSION: 1. No pulmonary embolus. No acute pulmonary abnormality is seen. 2. Mildly prominent mediastinal and hilar lymph nodes, particularly at the right hilum. This is nonspecific, could be reactive to an infectious or inflammatory etiology. Malignancy is felt less likely but not excluded. 3. Right thyroid nodule, recommend nonemergent ultrasound to further evaluate. Dictated by: Dictated on workstation # [id number]
[2023-04-04 19:11] LABS: INR 1.1 (0.8-1.4); PROTHROMBIN TIME PATIENT 14.9 SEC (12.2-14.7)
[2023-04-04] MEDS ORDERED: SUCR1TAB36 PO (19:16)
[2023-04-04] MEDS ORDERED: PANT40TA2 PO (19:16)
[2023-04-04] MEDS ORDERED: L. A1CAP11 PO (19:50)
[2023-04-04 19:55] LABS: FIBRIN DEGRADATION PRODUCTS 1.16 UG/ML (0.00-0.49)
[2023-04-04] MEDS ORDERED: RX-ONDANSETRON 4 MG ODT (ZOFRAN) PPK #4 PO STA (19:59)
[2023-04-04] MEDS ORDERED: RX-HYOSCYAMINE 0.125 MG SL (LEVSIN) PPK#6 SL STA (19:59)
[2023-04-04 20:12] LABS: FREE T4 (FREE THYROXINE) > 5.00 NG/DL (0.70-1.48)
[2023-04-04 20:13] VITALS: BP 110/42
== END 2023-04-04 20:13 | disposition home or self-care (01) ==
LOC: EDUNIT# 12:22 → ER 12:23
DX: K52.9 Noninfective gastroenteritis and colitis, unspecified (principal); C50.919 Malignant neoplasm of unspecified site of unspecified female breast; R94.6 Abnormal results of thyroid function studies; R00.0 Tachycardia, unspecified; Z79.899 Other long term (current) drug therapy
CPT/HCPCS: 36415; 71046; 71275; 74177; 76705; 80053; 81000; 83605; 83690; 83735; 83880; 84439; 84443; 84484; 84703; 85025; 85379; 85610; 85730; 86141; 87040; 87636; 93005; 96361; 96374; 96376